=== PATIENT | female | born 1955 | race Caucasian/White ===

== ENCOUNTER → 2023-09-09 11:52 | Outpatient (CLI) | payer OTHER, SELFPAY ==
[2023-09-09 12:53] LABS: Add Manual Diff / Slide Review NO; Basophils Absolute Auto 0 /uL (0-100); Basophils Percent Auto 0.4 % (0-2); Eosinophils Absolute Auto 200 /uL (0-450); Eosinophils Percent Auto 1.9 % (2-4); Hematocrit 35.3 % (36-46); Hemoglobin 11.3 g/dL (12.0-16.0); Lymphocytes Absolute Auto 1200 /uL (1100-4500); Lymphocytes Percent Auto 10.6 % (25-40); Mean Corpuscular HGB Conc 31.9 % (30-36); Mean Corpuscular Hemoglobin 27.1 PG (26-34); Mean Corpuscular Volume 84.9 fL (80-100); Monocytes Absolute Auto 800 /uL (0-900); Monocytes Percent Auto 7.1 % (3-14); Neutrophils Absolute Auto 9300 /uL (1500-7000); Platelet Count 299 X10^3/uL (150-400); Red Blood Cell Count 4.15 X10^6/uL (4.0-5.2); Red Cell Distribution Width 15.2 % (11.6-14.8); White Blood Cell Count 11.6 X10^3/uL (4.5-11.0)
[2023-09-11 06:09] LABS: Alpha 1 Anti Trypsin 106 mg/dL (101-187)
[2023-09-14 15:39] LABS: Immunoglobulin E 17 IU/mL (6-495)
[2023-09-16 22:36] LABS: Aspergillus fumigatus IgE <0.10 kU/L (Class 0)
== END ==
PROVIDERS: PCP Student in an Organized Health Care Education/Training Program; Referring Provider Internal Medicine; Visit Provider Internal Medicine
DX: E88.01 Alpha-1-antitrypsin deficiency (principal); Z12.2 Encounter for screening for malignant neoplasm of respiratory organs; J96.11 Chronic respiratory failure with hypoxia; J44.89 Other specified chronic obstructive pulmonary disease; J45.50 Severe persistent asthma, uncomplicated
CPT/HCPCS: 36415; 82103; 82785; 85025; 86003; 99215

== ENCOUNTER → 2023-12-02 11:45 | Outpatient (CLI) | payer OTHER, SELFPAY ==
[2023-12-02 12:27] LABS: PCO2 ABG 54.1 mmHg (35-45); pH ABG 7.41 (7.35-7.45)
[2023-12-02 12:28] LABS: Blood Gas Collection Site Right Brachial; Fractionated Inspired Oxygen 36; HCO3 ABG 34 mmol/L (23-27); Oxygen Saturation ABG 94 % (95-100); PO2 ABG 71 mmHg (80-100); TCO2 ABG 36 mmol/L (23-27)
== END ==
PROVIDERS: PCP Student in an Organized Health Care Education/Training Program; Referring Provider Internal Medicine; Visit Provider Internal Medicine
DX: J44.89 Other specified chronic obstructive pulmonary disease (principal); J96.11 Chronic respiratory failure with hypoxia; J96.12 Chronic respiratory failure with hypercapnia; E88.01 Alpha-1-antitrypsin deficiency
CPT/HCPCS: 36600; 82805

== ENCOUNTER → 2023-12-04 15:14 | Outpatient (CLI) | payer OTHER, SELFPAY | PROVIDERS: PCP Student in an Organized Health Care Education/Training Program; Referring Provider Internal Medicine; Visit Provider Internal Medicine | DX: J96.12 Chronic respiratory failure with hypercapnia (principal); J45.50 Severe persistent asthma, uncomplicated; F17.210 Nicotine dependence, cigarettes, uncomplicated; R94.2 Abnormal results of pulmonary function studies | CPT/HCPCS: 94060; 94726; 94729 ==

== ENCOUNTER 2024-03-18 10:15 | Outpatient (RCR) | payer OTHER, SELFPAY | END 2024-03-18 12:30 | LOC: PUL 10:15 | PROVIDERS: PCP Student in an Organized Health Care Education/Training Program; Referring Provider Student in an Organized Health Care Education/Training Program; Visit Provider Student in an Organized Health Care Education/Training Program | DX: J44.1 Chronic obstructive pulmonary disease with (acute) exacerbation (principal) | CPT/HCPCS: 94626 ==

== ENCOUNTER → 2024-08-20 12:04 | Outpatient (CLI) | payer OTHER, SELFPAY ==
[2024-08-20 13:27] LABS: NT-proBNP (BNP-Adult 18+) 77 pg/mL (<125)
== END ==
PROVIDERS: PCP Student in an Organized Health Care Education/Training Program; Referring Provider Internal Medicine; Visit Provider Internal Medicine
DX: J45.50 Severe persistent asthma, uncomplicated (principal); R60.0 Localized edema; J96.12 Chronic respiratory failure with hypercapnia; Z12.2 Encounter for screening for malignant neoplasm of respiratory organs; J96.11 Chronic respiratory failure with hypoxia; J44.89 Other specified chronic obstructive pulmonary disease
CPT/HCPCS: 36415; 83880

== ENCOUNTER → 2024-08-26 16:24 | Outpatient (CLI) | payer OTHER, SELFPAY ==
--- NOTE | 2024-08-26 16:25 | DI.US.S_ITS ---
PROCEDURE: US PERIPH VENOUS LOW EXTREM RT INDICATIONS: RLE swelling, rule out DVT TECHNIQUE: Real-time imaging, as well as color and pulse Doppler interrogation, were performed of the lower extremity deep veins from the inguinal ligament to the popliteal fossa, with documentation of the visualized calf veins. COMPARISON: None. FINDINGS: The common femoral, femoral, popliteal, and the visualized calf veins are normally compressible, and free of intraluminal thrombus. Color and pulse Doppler demonstrate normal phasic intraluminal flow. There is normal augmentation response to distal compression maneuver. Achilles tendon is thickened which is nonspecific finding but can be related to chronic tendinitis. IMPRESSION: No evidence of deep vein thrombosis involving the right lower extremity. Dictated by: Melissa Vaughan MD, PhD on 08/27/2024 at 9:41 Approved by: Melissa Vaughan MD, PhD on 08/27/2024 at 9:43
== END ==
PROVIDERS: PCP Student in an Organized Health Care Education/Training Program; Referring Provider Internal Medicine; Visit Provider Internal Medicine
DX: R60.0 Localized edema (principal)
CPT/HCPCS: 93971